=== PATIENT | male | born 1955 | race Hispanic/Latino ===

== ENCOUNTER 2018-09-15 17:31 | Emergency (ER) | payer OTHER | END 2018-09-15 21:12 | disposition home or self-care (01) | LOC: EDH 17:31 | DX: S16.1XXA Strain of muscle, fascia and tendon at neck level, initial encounter (principal); S06.891A Other specified intracranial injury with loss of consciousness of 30 minutes or less, initial encounter; M54.5 Low back pain; E11.9 Type 2 diabetes mellitus without complications; S89.92XA Unspecified injury of left lower leg, initial encounter; Z98.890 Other specified postprocedural states; V49.49XA Driver injured in collision with other motor vehicles in traffic accident, initial encounter; Y93.89 Activity, other specified; Y92.89 Other specified places as the place of occurrence of the external cause; Y99.8 Other external cause status | CPT/HCPCS: 70450; 72125 ==

== ENCOUNTER 2020-05-10 08:04 | Day surgery (SDC) | payer OTHER ==
[2020-05-02 12:53] LABS: BASOPHILS % (AUTO) 0.2 % (0.0-5.0); HEMATOCRIT 41.5 % (42-54); LYMPHOCYTES % (AUTO) 37.1 % (21.0-51.0); MEAN CORPUSCULAR HEMOGLOBIN 32.3 pg (27.0-33.0); NEUTROPHILS % (AUTO) 55.5 % (40.0-77.0); PLATELET COUNT (AUTO) 191 K/uL (130-400); RED BLOOD CELL COUNT(AUTO) 4.37 MIL/uL (4.50-6.20); RED CELL DISTRIBUTION WIDTH 11.9 % (11.0-15.5); WHITE BLOOD COUNT (AUTO) 5.2 K/uL (4.8-10.8)
[2020-05-02 13:07] LABS: CREATININE 1.1 mg/dL (0.5-1.5); POTASSIUM 4.4 mmol/L (3.5-5.1)
[2020-05-09 14:41] VITALS: BP 122/69
[2020-05-10] VITALS (17 sets, daily range): BP systolic 101–157; BP diastolic 52–84
[~2020-05-10] VITALS: Ht 172.7 cm; Wt 89.4 kg
[~2020-05-10 08:04] MED LIST: ATOR10TA69 PO; BACL10TA PO; CETI10TA57 PO; EXEN2PEN SQ; GLIP10TA9 PO; LOSA50TA64 PO; MELO-106 PO; MONT10TA26 PO; OLOP2.5D6 OU
[2020-05-10] MEDS ORDERED: IBUP-2077 PO (08:57)
[2020-05-10] MEDS ORDERED: SODIUM CHLORIDE 0.9% 1000ML 1,000 ML IV ONE (09:20)
[2020-05-10] MEDS: CEFAZOLIN SODIUM 1 GM VIAL ONE ×2 (09:25→15:04)
[2020-05-10] MEDS ORDERED: PROPOFOL 10 MG/ML 20ML VIAL IV ONE (14:04)
[2020-05-10] MEDS ORDERED: LIDOCAINE PF 2% 5ML ABBOJECT ONE (14:04)
[2020-05-10] MEDS ORDERED: DEXAMETHASONE SOD PHOSPHATE 10MG/ML 1ML VIAL ONE (14:04)
[2020-05-10] MEDS ORDERED: ONDANSETRON HCL 4 MG/2 ML VIAL ONE (14:04)
[2020-05-10] MEDS ORDERED: ROCURONIUM 10MG/1ML SYR 10 MG/ML ML ONE (14:05)
[2020-05-10] MEDS ORDERED: MIDAZOLAM HCL 1 MG/ML 2ML VIAL ONE (14:05)
[2020-05-10] MEDS ORDERED: NEOSTIGMINE 5MG/5ML SYR IV ONE (14:05)
[2020-05-10] MEDS ORDERED: FENTANYL CITRATE PF 50 MCG/1 ML 2ML VIAL ONE (14:05)
[2020-05-10] MEDS ORDERED: GLYCOPYRROLATE 1 MG/5 ML SYRINGE ONE (14:06)
[2020-05-10] MEDS ORDERED: MEPERIDINE-PF 25 MG/ML SYG ONE (14:06)
[2020-05-10] MEDS ORDERED: ROPIVACAINE 0.5% 5MG/ML 30ML IJ ONE (14:10)
[2020-05-10] MEDS ORDERED: EPHEDRINE SULFATE 50 MG/ML AMPULE ONE (15:36)
[2020-05-10] MEDS ORDERED: PHENYLEPHRINE HCL 10 MG/ML 1ML VIAL IV ONE (15:52)
== END 2020-05-10 18:10 | disposition home or self-care (01) ==
LOC: DAH 08:04
PROVIDERS: ATTEND Orthopaedic Surgery
DX: M75.51 Bursitis of right shoulder (principal); M19.011 Primary osteoarthritis, right shoulder; I10 Essential (primary) hypertension; E11.9 Type 2 diabetes mellitus without complications; M75.81 Other shoulder lesions, right shoulder; Z79.899 Other long term (current) drug therapy; Z20.828 Contact with and (suspected) exposure to other viral communicable diseases
CPT/HCPCS: 23120; 29822; 29826; 36415; 64415; 76942; 80048; 82948 ×2; 85025; 93005; A4215; A4221; A4222; A4223; A4452; A4565; A4600; A4649 ×5; A4663; A6260; C9803; J0690; J1100; J2001; J2175; J2250; J2370; J2405; J2704; J2710; J2795; J3010; J3490 ×2; J7030 ×2; U0003